=== PATIENT | female | born 1990 | race Caucasian/White ===

== ENCOUNTER 2017-12-31 21:48 | Emergency (ER) | payer SELFPAY, MEDICAID ==
[2017-12-31] MEDS: LIDOCAINE 1% MDV 20ML VIAL SC (23:00)
[2018-01-01] MEDS: IBUPROFEN 800 MG TAB PO
== END 2018-01-01 00:02 | disposition home or self-care (01) ==
LOC: M ED 01-01 00:02
DX: S61.011A Laceration without foreign body of right thumb without damage to nail, initial encounter (principal); S61.210A Laceration without foreign body of right index finger without damage to nail, initial encounter; W25.XXXA Contact with sharp glass, initial encounter; Y93.G1 Activity, food preparation and clean up; Y92.009 Unspecified place in unspecified non-institutional (private) residence as the place of occurrence of the external cause; Z91.018 Allergy to other foods
CPT/HCPCS: 12002

== ENCOUNTER 2018-11-22 20:47 | Emergency (ER) | payer SELFPAY ==
[~2018-11-22] VITALS: Ht 170.2 cm; Wt 63.6 kg
[2018-11-23 00:23] LABS: BASO # 0.1 10^3/uL (0.0-0.2); BASO % 0.8 % (0.0-1.0); EOS # 0.3 10^3/uL (0.0-0.5); EOS % 2.7 % (0.0-3.0); HEMATOCRIT 41.6 % (36.0-47.0); HEMOGLOBIN 13.8 g/dl (12.0-15.5); LYMPH % 18.7 % (24.0-44.0); MEAN CORPUSCULAR HEMOGLOBIN 30.5 pg (27.0-33.0); MEAN CORPUSCULAR HGB CONC 33.2 g/dl (32.0-36.5); MONO # 0.6 10^3/uL (0.0-0.8); MONO % 5.7 % (0.0-5.0); NEUTROPHILS # 7.6 10^3/uL (1.5-8.5); NEUTROPHILS % 71.7 % (36.0-66.0); PLATELET COUNT, AUTOMATED 290 10^3/uL (150-450); RED BLOOD COUNT 4.52 10^6/uL (4.00-5.40); WHITE BLOOD COUNT 10.6 10^3/uL (4.0-10.0)
[2018-11-23] MEDS ORDERED: KEFL500C17 PO (00:50)
[2018-11-23 00:54] VITALS: BP 130/65
== END 2018-11-23 00:59 | disposition home or self-care (01) ==
LOC: M ED 20:47
DX: L03.90 Cellulitis, unspecified (principal); F17.200 Nicotine dependence, unspecified, uncomplicated; Z91.018 Allergy to other foods

== ENCOUNTER 2020-11-05 22:26 | Emergency (ER) | payer MEDICAID, SELFPAY ==
[~2020-11-05] VITALS: Ht 170.2 cm; Wt 62.0 kg
[~2020-11-05 22:26] MED LIST: KEFL500C17 PO
[2020-11-06] MEDS ORDERED: LORazepam 2 MG/ML VIAL IV STA (00:37)
[2020-11-06 01:37] LABS: BASO # 0.1 10^3/uL (0.0-0.2); EOS # 0.4 10^3/uL (0.0-0.5); EOS % 4.1 % (0.0-3.0); HEMATOCRIT 43.5 % (36.0-47.0); HEMOGLOBIN 14.7 g/dl (12.0-15.5); LYMPH # 2.6 10^3/uL (1.5-5.0); LYMPH % 28.5 % (24.0-44.0); MEAN CORPUSCULAR HEMOGLOBIN 30.8 pg (27.0-33.0); MEAN CORPUSCULAR HGB CONC 33.8 g/dl (32.0-36.5); MONO # 0.6 10^3/uL (0.0-0.8); MONO % 6.3 % (2.0-8.0); NEUTROPHILS # 5.4 10^3/uL (1.5-8.5); NEUTROPHILS % 59.7 % (36.0-66.0); PLATELET COUNT, AUTOMATED 312 10^3/uL (150-450); RED BLOOD COUNT 4.78 10^6/uL (4.00-5.40)
[2020-11-06 02:06] LABS: BLOOD UREA NITROGEN 9 MG/DL (7-18); CALCIUM LEVEL 8.6 MG/DL (8.5-10.1); CARBON DIOXIDE LEVEL 27 MEQ/L (21-32); CHLORIDE LEVEL 108 MEQ/L (98-107); CK-MB VALUE MASS < 1.0 NG/ML (<3.6); CPK CREATINE PHOSPHOKINASE 69 U/L (26-192); ETHYL ALCOHOL (ETHANOL) 0.033 % (0.000-0.010); GLOMERULAR FILTRATION RATE > 60.0 (>60); GLUCOSE, FASTING 89 MG/DL (70-100); MB/CK RELATIVE INDEX 1.45 (< OR =4); POTASSIUM SERUM 4.2 MEQ/L (3.5-5.1); SODIUM LEVEL 140 MEQ/L (136-145); TROPONIN I < 0.02 NG/ML (< 0.10)
[2020-11-06 02:08] LABS: HCG, SERUM QUALITATIVE NEGATIVE (NEGATIVE)
[2020-11-06 02:26] LABS: RSV AMPLIFICATION NEGATIVE (NEGATIVE)
[2020-11-06 03:00] VITALS: BP 117/81
--- NOTE | 2020-11-06 03:38 | REPVR ---
PROCEDURE INFORMATION: Exam: XR Chest Exam date and time: 11/06/2020 2:41 AM Age: 30 years old Clinical indication: Other: Chest pain TECHNIQUE: Imaging protocol: XR of the chest. Views: 1 view. COMPARISON: No relevant prior studies available. FINDINGS: Lungs: Pulmonary hyperinflation which is not unusual for age. No focal infiltrates. Pleural spaces: Unremarkable. No pleural effusion. No pneumothorax. Heart/Mediastinum: Unremarkable. No cardiomegaly. Bones/joints: Unremarkable. IMPRESSION: Negative chest. Electronically signed by: Jesús Harkins On 11/06/2020 03:37:51 AM
--- NOTE | 2020-11-06 19:13 | ECGEPIP ---
[facility] - ED Test Date: 2020-11-06 Pat Name: MELINDA PEDRAZA Department: Room: - Gender: Female [employer] Supervisor: CADEN : [id number] Requested By: JERSEY Jimenez Order Number: [id number] Reading MD: Cynthia Dewey Measurements Intervals [place] Rate: 74 P: 53 DE: 178 QRS: -10 QRSD: 102 T: 51 QT: 426 QTc: 472 Interpretive Statements Normal sinus rhythm leftward axis Incomplete right bundle branch block Delayed R wave progression Nonspecific ST T wave changes Baseline wandering may affect reading Baseline artifact may affect reading Electronically Signed on 11-06-2020 19:12:57 EDT by Cynthia Dewey
== END 2020-11-06 04:34 | disposition home or self-care (01) ==
LOC: M ED 22:26
DX: F41.9 Anxiety disorder, unspecified (principal); I45.19 Other right bundle-branch block; Z91.018 Allergy to other foods; F12.20 Cannabis dependence, uncomplicated

== ENCOUNTER → 2020-11-11 | Outpatient (CLI) | payer MEDICAID, SELFPAY ==
--- NOTE | 2020-11-11 16:27 | REP ---
INDICATION: DISC DEGENERATION. COMPARISON: None. TECHNIQUE: AP, lateral, flexion/extension, bilateral oblique and open mouth views of the cervical spine. FINDINGS: Sagittal views demonstrate subtle spurring along the anteroinferior margins at C4 and C5 with small fractured spur at C5 which appear chronic. The vertebral bodies are otherwise intact and relatively normal without fracture/compression injury or subluxation. Alignment is maintained. Disc spaces appear relatively intact. Oblique views demonstrate patent neural foramen. Open mouth view demonstrates normal C1-C2 articulation and odontoid process. IMPRESSION: Mild degenerative changes involving C4 and C5 may be related to old injury. Otherwise relatively unremarkable examination. If the patient remains symptomatic consider MRI for further investigation. <Electronically signed by Alex Gordon > 11/11/20 [id number]
== END ==
LOC: M PLAIMG 15:54
PROVIDERS: ATTEND Chiropractor
DX: M54.2 Cervicalgia (principal)

== ENCOUNTER 2021-04-04 02:48 | Inpatient (IN) | payer MEDICAID ==
[2021-04-04] VITALS (16 sets, daily range): BP systolic 91–128; BP diastolic 54–74
[~2021-04-04] VITALS: Ht 170.2 cm; Wt 63.6 kg
[2021-04-04 04:32] LABS: BASO # 0.1 10^3/uL (0.0-0.2); BASO % 0.6 % (0.0-1.0); EOS # 0.2 10^3/uL (0.0-0.5); EOS % 1.9 % (0.0-3.0); HEMATOCRIT 43.5 % (36.0-47.0); HEMOGLOBIN 14.6 g/dl (12.0-15.5); LYMPH # 1.7 10^3/uL (1.5-5.0); LYMPH % 17.6 % (24.0-44.0); MEAN CORPUSCULAR HEMOGLOBIN 30.6 pg (27.0-33.0); MEAN CORPUSCULAR HGB CONC 33.6 g/dl (32.0-36.5); MEAN CORPUSCULAR VOLUME 91.2 fl (80.0-96.0); MONO # 0.3 10^3/uL (0.0-0.8); MONO % 3.4 % (2.0-8.0); NEUTROPHILS # 7.2 10^3/uL (1.5-8.5); NEUTROPHILS % 76.1 % (36.0-66.0); PLATELET COUNT, AUTOMATED 316 10^3/uL (150-450); RED BLOOD COUNT 4.77 10^6/uL (4.00-5.40); WHITE BLOOD COUNT 9.4 10^3/uL (4.0-10.0)
[2021-04-04 04:54] LABS: BLOOD UREA NITROGEN 8 MG/DL (7-18); CALCIUM LEVEL 8.2 MG/DL (8.5-10.1); CARBON DIOXIDE LEVEL 27 MEQ/L (21-32); CHLORIDE LEVEL 108 MEQ/L (98-107); CREATININE FOR GFR 0.69 MG/DL (0.55-1.30); ETHYL ALCOHOL (ETHANOL) 0.254 % (0.000-0.010); GLOMERULAR FILTRATION RATE > 60.0 (>60); GLUCOSE, FASTING 115 MG/DL (70-100); POTASSIUM SERUM 4.2 MEQ/L (3.5-5.1); SODIUM LEVEL 143 MEQ/L (136-145)
[2021-04-04 04:57] LABS: HCG, SERUM QUALITATIVE NEGATIVE (NEGATIVE)
[2021-04-04 05:20] LABS: RSV AMPLIFICATION NEGATIVE (NEGATIVE)
[2021-04-04] MEDS ORDERED: ACETAMINOPHEN TAB 650MG DOSE (2X325MG) PO PRN (05:50)
[2021-04-04] MEDS ORDERED: HOME MED LIST COMPLETE! XX SCH (06:40)
[2021-04-04] MEDS ORDERED: ACETAMINOPHEN *IV* 1,000 MG in IV 1 EA IV ONE (08:40)
[2021-04-04] MEDS ORDERED: diazePAM 10MG/2ML SYRINGE (J3360 PER 5MG) IV PRN ×2 (08:40→14:40)
[2021-04-04] MEDS ORDERED: NS 1,000 ML IV SCH (08:40)
[2021-04-04] MEDS: KETOROLAC 30 MG/ML 1ML VIAL IV PRN ×2 (09:13→09:28)
[2021-04-04] MEDS ORDERED: ceFAZolin SOD 2 GM in IV 1 EA IV STA (10:34)
[2021-04-04] MEDS ORDERED: ceFAZolin 2 GM/D5W 50 ML IV BAG (J0690 PER 500MG) As Ordered ONE (11:21)
[2021-04-04] MEDS ORDERED: propofoL 200 MG/20 ML VIAL As Ordered ONE ×2 (11:27→12:34)
[2021-04-04] MEDS ORDERED: LIDOCAINE 2% 100MG/5ML SDV (FOR ANES.) As Ordered ONE (11:27)
[2021-04-04] MEDS ORDERED: fentaNYL 100 MCG/2 ML INJECTION (J3010) As Ordered ONE (11:27)
[2021-04-04] MEDS ORDERED: MIDAZOLAM INJ 2MG/2ML VIAL (J2250 PER 1MG) As Ordered ONE (11:27)
[2021-04-04] MEDS ORDERED: METOCLOPRAMIDE INJ 10MG/2ML VIAL (J2765 PER 1) As Ordered ONE (11:27)
[2021-04-04] MEDS ORDERED: ONDANSETRON 4MG/2ML VIAL As Ordered ONE (11:27)
[2021-04-04] MEDS ORDERED: ACETAMINOPHEN 1000MG 100ML IV BTL (OFIRMEV) (J0131 PER 10MG) As Ordered ONE (11:27)
[2021-04-04] MEDS ORDERED: dexameTHASONE 4 MG/ML 1ML VIAL (J1100 PER 1MG) As Ordered ONE (11:27)
[2021-04-04] MEDS ORDERED: BACITRACIN OINTMENT 30GM TUBE As Ordered ONE (12:54)
[2021-04-04] MEDS ORDERED: KETOROLAC 30 MG/ML 1ML VIAL IV PRN (13:25)
[2021-04-04] MEDS ORDERED: LR 1,000 ML IV SCH (13:25)
[2021-04-04] MEDS ORDERED: ONDANSETRON 4MG/2ML VIAL IV PRN (13:25)
[2021-04-04] MEDS ORDERED: IBUPROFEN 100 MG/5 ML SUSP UDC DYE FREE PO PRN (13:30)
[2021-04-04] MEDS: guaiFENesin ER 600 MG TAB PO SCH ×2 (14:55→20:10)
[2021-04-04] MEDS: KETOROLAC 30 MG/ML 1ML VIAL IV SCH ×2 (14:55→22:04)
[2021-04-04] MEDS: ENOXAPARIN 40MG/0.4ML SYRINGE (J1650 PER 10MG) SC SCH (14:58)
[2021-04-04] MEDS ORDERED: LORazepam 2 MG TAB PO PRN (18:55)
[2021-04-04] MEDS: THIAMINE 100 MG TAB PO SCH (20:10)
[2021-04-04] MEDS: ceFAZolin SOD 3 GM in D5W MINI-BAG PLUS 50 ML IV SCH (20:11)
[2021-04-04] MEDS: ACETAMINOPHEN 325 MG TAB PO SCH (22:04)
[2021-04-05] VITALS (13 sets, daily range): BP systolic 98–142; BP diastolic 58–83
[2021-04-05] MEDS: ceFAZolin SOD 3 GM in D5W MINI-BAG PLUS 50 ML IV SCH ×2 (03:38→12:02)
[2021-04-05] MEDS: KETOROLAC 30 MG/ML 1ML VIAL IV SCH ×2 (03:38→10:49)
[2021-04-05 04:58] LABS: HEMATOCRIT 33.2 % (36.0-47.0); MEAN CORPUSCULAR HEMOGLOBIN 31.3 pg (27.0-33.0); MEAN CORPUSCULAR HGB CONC 34.3 g/dl (32.0-36.5); MEAN CORPUSCULAR VOLUME 91.2 fl (80.0-96.0); PLATELET COUNT, AUTOMATED 259 10^3/uL (150-450); RED BLOOD COUNT 3.64 10^6/uL (4.00-5.40); WHITE BLOOD COUNT 11.3 10^3/uL (4.0-10.0)
[2021-04-05 04:59] LABS: HEMOGLOBIN 11.4 g/dl (12.0-15.5)
[2021-04-05 05:24] LABS: BLOOD UREA NITROGEN 14 MG/DL (7-18); CALCIUM LEVEL 7.8 MG/DL (8.5-10.1); CARBON DIOXIDE LEVEL 23 MEQ/L (21-32); CHLORIDE LEVEL 108 MEQ/L (98-107); CREATININE FOR GFR 0.68 MG/DL (0.55-1.30); GLOMERULAR FILTRATION RATE > 60.0 (>60); GLUCOSE, FASTING 144 MG/DL (70-100); POTASSIUM SERUM 3.8 MEQ/L (3.5-5.1); SODIUM LEVEL 138 MEQ/L (136-145)
[2021-04-05] MEDS: ACETAMINOPHEN 325 MG TAB PO SCH ×3 (06:06→22:29)
[2021-04-05] MEDS: MULTIVITAMINS/MINERALS THERAP 1 TAB PO SCH (08:14)
[2021-04-05] MEDS: guaiFENesin ER 600 MG TAB PO SCH ×2 (08:14→20:33)
[2021-04-05] MEDS: FOLIC ACID 1 MG TAB PO SCH (08:14)
[2021-04-05] MEDS: THIAMINE 100 MG TAB PO SCH ×2 (08:14→20:34)
[2021-04-05] MEDS: ENOXAPARIN 40MG/0.4ML SYRINGE (J1650 PER 10MG) SC SCH (08:15)
[2021-04-05] MEDS ORDERED: KETOROLAC 30 MG/ML 1ML VIAL IV ONE (08:50)
[2021-04-05] MEDS ORDERED: PILL CUTTER 1 EACH XX PRN (08:50)
[2021-04-05] MEDS: diazePAM 2 MG TAB PO PRN (09:15)
[2021-04-05] MEDS: NS 1,000 ML IV SCH ×2 (10:48→23:09)
[2021-04-05] MEDS ORDERED: CYCLOBENZAPRINE 5MG TABLET PO PRN (12:20)
[2021-04-05] MEDS ORDERED: IBUPROFEN 600MG TAB PO ONE ×2 (14:00→23:00)
[2021-04-06] VITALS: BP 118/81
[2021-04-06 04:00] VITALS: BP 117/72
[2021-04-06 06:00] VITALS: BP 138/88
[2021-04-06] MEDS: ACETAMINOPHEN 325 MG TAB PO SCH ×2 (06:12→14:49)
[2021-04-06 07:19] LABS: BASO % 0.4 % (0.0-1.0); EOS # 0.2 10^3/uL (0.0-0.5); EOS % 2.1 % (0.0-3.0); HEMATOCRIT 31.9 % (36.0-47.0); HEMOGLOBIN 10.7 g/dl (12.0-15.5); LYMPH % 25.6 % (24.0-44.0); MEAN CORPUSCULAR HGB CONC 33.5 g/dl (32.0-36.5); MEAN CORPUSCULAR VOLUME 92.5 fl (80.0-96.0); MONO # 0.6 10^3/uL (0.0-0.8); MONO % 7.7 % (2.0-8.0); NEUTROPHILS % 63.9 % (36.0-66.0); PLATELET COUNT, AUTOMATED 204 10^3/uL (150-450); RED BLOOD COUNT 3.45 10^6/uL (4.00-5.40); WHITE BLOOD COUNT 7.8 10^3/uL (4.0-10.0)
[2021-04-06 07:47] LABS: ALBUMIN 2.8 GM/DL (3.2-5.2); ALT/SGPT 15 U/L (12-78); BILIRUBIN,TOTAL 0.5 MG/DL (0.2-1.0); BLOOD UREA NITROGEN 8 MG/DL (7-18); CALCIUM LEVEL 7.9 MG/DL (8.5-10.1); CARBON DIOXIDE LEVEL 26 MEQ/L (21-32); CHLORIDE LEVEL 111 MEQ/L (98-107); CREATININE FOR GFR 0.54 MG/DL (0.55-1.30); GLOMERULAR FILTRATION RATE > 60.0 (>60); GLUCOSE, FASTING 96 MG/DL (70-100); SODIUM LEVEL 140 MEQ/L (136-145); TOTAL PROTEIN 5.5 GM/DL (6.4-8.2)
[2021-04-06] MEDS: THIAMINE 100 MG TAB PO SCH (08:12)
[2021-04-06] MEDS: guaiFENesin ER 600 MG TAB PO SCH (08:12)
[2021-04-06] MEDS: ENOXAPARIN 40MG/0.4ML SYRINGE (J1650 PER 10MG) SC SCH (08:12)
[2021-04-06] MEDS: MULTIVITAMINS/MINERALS THERAP 1 TAB PO SCH (08:12)
[2021-04-06] MEDS: FOLIC ACID 1 MG TAB PO SCH (08:12)
[2021-04-06 09:12] VITALS: BP 132/74
[2021-04-06] MEDS: diazePAM 2 MG TAB PO PRN (11:54)
[2021-04-06 12:00] VITALS: BP 128/79
[2021-04-06] MEDS ORDERED: IBUPROFEN 600MG TAB PO ONE (13:00)
[2021-04-06] MEDS ORDERED: VITMTA PO (15:11)
[2021-04-06] MEDS ORDERED: FOLI1TAB11 PO (15:11)
[2021-04-06] MEDS ORDERED: IBUP-1022 PO (15:11)
[2021-04-06] MEDS ORDERED: MUCI600T31 PO (15:11)
[2021-04-06] MEDS ORDERED: QC A650T3 PO (15:11)
[2021-04-06] MEDS ORDERED: THIA100TA PO (15:11)
[2021-04-06] MEDS ORDERED: OMEP40CA4 PO (15:12)
== END 2021-04-06 17:11 | disposition home or self-care (01) | DRG 313 ==
LOC: M ED 02:48 → M ED INP 02:49 → M ICU 14:00 → OBSVTOIN 04-05 10:12
PROVIDERS: ADMIT Family Medicine; ATTEND Internal Medicine
PROC: 0QSG06Z Reposition Right Tibia with Intramedullary Internal Fixation Device, Open Approach (ICD-10-PCS; 2021-04-04)
PROC: 0QSJ06Z Reposition Right Fibula with Intramedullary Internal Fixation Device, Open Approach (ICD-10-PCS; principal; 2021-04-04 09:44)
DX: S82.441A Displaced spiral fracture of shaft of right fibula, initial encounter for closed fracture (principal); S82.241A Displaced spiral fracture of shaft of right tibia, initial encounter for closed fracture; U07.1 COVID-19; F10.129 Alcohol abuse with intoxication, unspecified; W01.0XXA Fall on same level from slipping, tripping and stumbling without subsequent striking against object, initial encounter; Y92.9 Unspecified place or not applicable; Z88.5 Allergy status to narcotic agent

== ENCOUNTER → 2021-04-13 | Outpatient (CLI) | payer MEDICAID ==
[~2021-04-13] MED LIST changes: +FOLI1TAB11 PO; +IBUP-1022 PO; +MUCI600T31 PO; +OMEP40CA4 PO; +QC A650T3 PO; +THIA100TA PO; +VITMTA PO
== END ==
LOC: M SOG 08:19
PROVIDERS: ATTEND Orthopaedic Surgery Hand Surgery
DX: Z48.89 Encounter for other specified surgical aftercare (principal)

== ENCOUNTER → 2021-05-05 | Outpatient (CLI) | payer OTHER | LOC: M SOG 09:10 | PROVIDERS: ATTEND Orthopaedic Surgery Hand Surgery | DX: S82.221D Displaced transverse fracture of shaft of right tibia, subsequent encounter for closed fracture with routine healing (principal) ==

== ENCOUNTER → 2021-06-15 | Outpatient (CLI) | payer OTHER | LOC: M SOG 08:11 | PROVIDERS: ATTEND Physician Assistant | DX: S82.221D Displaced transverse fracture of shaft of right tibia, subsequent encounter for closed fracture with routine healing (principal); X58.XXXD Exposure to other specified factors, subsequent encounter; Y92.89 Other specified places as the place of occurrence of the external cause ==

== ENCOUNTER → 2022-10-12 | Outpatient (CLI) | payer OTHER | LOC: M SOG 13:56 | PROVIDERS: ATTEND Orthopaedic Surgery | DX: S52.501D Unspecified fracture of the lower end of right radius, subsequent encounter for closed fracture with routine healing (principal) ==

== ENCOUNTER → 2022-10-17 | Outpatient (CLI) | payer OTHER | LOC: M SOG 09:38 | PROVIDERS: ATTEND Orthopaedic Surgery | DX: S52.531D Colles' fracture of right radius, subsequent encounter for closed fracture with routine healing (principal) ==

== ENCOUNTER → 2022-10-26 | Outpatient (CLI) | payer OTHER ==
[~2022-10-26] MED LIST changes: +TRAM50TA2 PO
== END ==
LOC: M SOG 10:06
PROVIDERS: ATTEND Orthopaedic Surgery
DX: S52.531A Colles' fracture of right radius, initial encounter for closed fracture (principal); S52.611A Displaced fracture of right ulna styloid process, initial encounter for closed fracture; Y93.9 Activity, unspecified; Y92.9 Unspecified place or not applicable

== ENCOUNTER 2022-10-28 11:20 | Day surgery (SDC) | payer OTHER ==
[~2022-10-28] VITALS: Ht 175.3 cm; Wt 64.2 kg
[~2022-10-28 11:20] MED LIST changes: -TRAM50TA2 PO
[2022-10-28] MEDS ORDERED: LR 1,000 ML IV SCH (12:00)
[2022-10-28] MEDS ORDERED: ROPIvacaine 0.5% 30ML VIAL PN ONE (12:15)
[2022-10-28] MEDS ORDERED: dexAMETHasone 10MG/1ML VIAL PRES.FREE PN ONE (12:15)
[2022-10-28] MEDS ORDERED: EPINEPHrine INJ 1 MG/ML 1ML AMP PN ONE (12:15)
[2022-10-28] MEDS ORDERED: fentaNYL 100 MCG/2 ML INJECTION IV PRN (12:15)
[2022-10-28] MEDS ORDERED: MIDAZOLAM INJ 2MG/2ML VIAL IV PRN (12:15)
[2022-10-28] MEDS ORDERED: LIDOCAINE 1% SDV 5ML VIAL PN ONE (12:15)
[2022-10-28] MEDS ORDERED: LIDOCAINE 2% 100MG/5ML SDV (FOR ANES.) As Ordered ONE ×2 (12:36→15:18)
[2022-10-28] MEDS ORDERED: propofoL 200 MG/20 ML VIAL As Ordered ONE ×2 (12:36→15:18)
[2022-10-28] MEDS ORDERED: ONDANSETRON 4MG 2ML VIAL As Ordered ONE ×2 (12:37→15:18)
[2022-10-28] MEDS ORDERED: KETOROLAC 60MG 2ML VIAL As Ordered ONE ×2 (12:37→15:18)
[2022-10-28] MEDS ORDERED: ceFAZolin SOD 2 GM in IV 1 EA IV ONE (13:10)
[2022-10-28] MEDS ORDERED: BACITRACIN OINTMENT 30GM TUBE As Ordered ONE (13:20)
[2022-10-28] MEDS ORDERED: ceFAZolin 2 GM/D5W 50 ML IV BAG As Ordered ONE (14:42)
[2022-10-28] MEDS ORDERED: KETAMINE HCL 200MG/20ML VIAL As Ordered ONE (15:18)
[2022-10-28] MEDS ORDERED: ACETAMINOPHEN 1000MG 100ML IV BAG As Ordered ONE (15:18)
[2022-10-28] MEDS ORDERED: MIDAZOLAM INJ 2MG/2ML VIAL As Ordered ONE (15:18)
[2022-10-28] MEDS ORDERED: fentaNYL 100 MCG/2 ML INJECTION As Ordered ONE (15:18)
[2022-10-28] MEDS ORDERED: TRAM50TA2 PO (15:42)
[2022-10-28 16:05] VITALS: BP 117/64; TEMP 99.7; O2SAT 94
== END 2022-10-28 16:16 | disposition home or self-care (01) ==
LOC: M SDC 11:20
PROVIDERS: ATTEND Orthopaedic Surgery Hand Surgery
DX: S52.551A Other extraarticular fracture of lower end of right radius, initial encounter for closed fracture (principal); W18.30XA Fall on same level, unspecified, initial encounter; Y92.89 Other specified places as the place of occurrence of the external cause; Y93.9 Activity, unspecified; Y99.9 Unspecified external cause status; Z88.5 Allergy status to narcotic agent; Z91.018 Allergy to other foods
CPT/HCPCS: 25607; 64418; 76000; C1713; J0131; J0665; J0690; J1100; J1885; J2250; J2405; J3010

== ENCOUNTER → 2022-11-07 | Outpatient (CLI) | payer OTHER ==
[~2022-11-07] MED LIST changes: +TRAM50TA2 PO
== END ==
LOC: M SOG 14:03
PROVIDERS: ATTEND Physician Assistant
DX: S52.531D Colles' fracture of right radius, subsequent encounter for closed fracture with routine healing (principal)

== ENCOUNTER → 2023-01-23 | Outpatient (CLI) | payer OTHER | LOC: M SOG 07:53 | PROVIDERS: ATTEND Physician Assistant | DX: Z53.9 Procedure and treatment not carried out, unspecified reason (principal) ==

== ENCOUNTER → 2023-10-26 | Outpatient (CLI) | payer OTHER | LOC: M PLAIMG 07:38 | PROVIDERS: ATTEND Orthopaedic Surgery | DX: S82.401D Unspecified fracture of shaft of right fibula, subsequent encounter for closed fracture with routine healing (principal); Y93.9 Activity, unspecified; Y92.9 Unspecified place or not applicable ==